=== PATIENT | male | born 1955 | race Two or more races ===

== ENCOUNTER 2016-08-20 05:55 | Emergency (ER) | payer OTHER ==
[~2016-08-20] VITALS: Ht 170.2 cm; Wt 68.0 kg
[2016-08-20] MEDS ORDERED: FAMOTIDINE/PF INJ 20 MG/2 ML VIAL IV ONE ×2 (06:30→06:33)
[2016-08-20] MEDS ORDERED: ONDANSETRON HCL/PF 4 MG/2 ML VIAL IVP ONE (06:30)
[2016-08-20] MEDS ORDERED: IV NS 0.9% 1,000 ML BAG IV ONE (06:30)
[2016-08-20] MEDS ORDERED: IV SET PRIMARY 1 EA INFUS.SET MC ONE (06:33)
[2016-08-20] MEDS ORDERED: ONDANSETRON HCL/PF 4 MG/2 ML VIAL ONE (06:33)
[2016-08-20] MEDS ORDERED: IV NS 0.9% 1,000 ML ONE (06:33)
[2016-08-20 06:53] LABS: BASOPHILS % (AUTO) 0.3 % (0.0-2.0); DIFF TOTAL % 100 %; EOSINOPHILS % (AUTO) 0.7 % (0.0-6.0); HEMATOCRIT 46 % (39-51); HEMOGLOBIN 15.1 g/dL (13.5-17.5); LYMPHOCYTES # (AUTO) 0.9 /CMM (0.8-4.8); LYMPHOCYTES % (AUTO) 17.1 % (20.0-44.0); MEAN CORPUSCULAR HEMOGLOBIN 25 PG (26.0-33.0); MEAN CORPUSCULAR HGB CONC 33 g/dl (31.0-36.0); MEAN CORPUSCULAR VOLUME 77 fL (80-96); MONOCYTES # (AUTO) 0.5 /CMM (0.1-1.30); MONOCYTES % (AUTO) 8.4 % (2.0-12.0); NEUTROPHILS % (AUTO) 73.5 % (43.0-81.0); PLATELET COUNT (AUTO) 173 /CMM (150-450); RED BLOOD CELL COUNT(AUTO) 6.06 MIL/uL (4.5-6.0); WHITE BLOOD COUNT (AUTO) 5.4 K/uL (4.3-11.0)
[2016-08-20 07:11] LABS: INR 1.05 (0.87-1.13); PROTHROMBIN TIME 11.4 SECS (9.5-12.7)
[2016-08-20 07:13] LABS: ALBUMIN 3.8 g/dL (3.4-5.0); BILIRUBIN,DIRECT 0.1 mg/dL (0.0-0.2); BILIRUBIN,TOTAL 0.5 mg/dL (0.2-1.0); CALCIUM, SERUM 8.4 mg/dL (8.5-10.1); CREATININE 0.7 mg/dL (0.6-1.3); INDIRECT BILIRUBIN 0.4 mg/dL (0.0-1.1); POTASSIUM 3.8 mmol/L (3.5-5.1); TOTAL PROTEIN, SERUM 6.9 g/dL (6.4-8.2)
[2016-08-20 07:50] VITALS: BP 140/80
== END 2016-08-20 08:20 | disposition home or self-care (01) ==
LOC: ER 05:59
DX: K29.20 Alcoholic gastritis without bleeding (principal); F10.10 Alcohol abuse, uncomplicated; F17.200 Nicotine dependence, unspecified, uncomplicated; Z87.442 Personal history of urinary calculi; Z88.6 Allergy status to analgesic agent; Z88.8 Allergy status to other drugs, medicaments and biological substances
CPT/HCPCS: 36415; 80048; 80076; 83690; 85025; 85730; 96361; 96374; 96375; 99284; A4606; G0480; J2405; J3490; J7030; Z7610

== ENCOUNTER 2017-01-19 16:35 | Emergency (ER) | payer OTHER ==
[~2017-01-19] VITALS: Ht 172.7 cm; Wt 77.1 kg
--- NOTE | 2017-01-19 17:12 | NUR ---
NAUSEA, VOMITING, AND DIARRHEA X 3 DAYS . CHEST PAIN SINCE YESTERDAY. PLACED ON MONITOR. GOWNED PT. AWAITING MD ORDER
[2017-01-19 17:45] LABS: BASOPHILS % (AUTO) 0.9 % (0.0-2.0); EOSINOPHILS # (AUTO) 0.2 /CMM (0.0-0.7); EOSINOPHILS % (AUTO) 4.5 % (0.0-6.0); HEMATOCRIT 43 % (39-51); LYMPHOCYTES # (AUTO) 1.4 /CMM (0.8-4.8); LYMPHOCYTES % (AUTO) 31.5 % (20.0-44.0); MEAN CORPUSCULAR HEMOGLOBIN 26 PG (26.0-33.0); MEAN CORPUSCULAR HGB CONC 33 g/dl (31.0-36.0); MEAN CORPUSCULAR VOLUME 79 fL (80-96); MONOCYTES # (AUTO) 0.4 /CMM (0.1-1.30); MONOCYTES % (AUTO) 9.5 % (2.0-12.0); NEUTROPHILS # (AUTO) 2.3 /CMM (1.8-8.9); NEUTROPHILS % (AUTO) 53.6 % (43.0-81.0); PLATELET COUNT (AUTO) 192 /CMM (150-450); RDW COEFFICIENT OF VARIATION 13.9 (11.5-15.0); RED BLOOD CELL COUNT(AUTO) 5.49 MIL/uL (4.5-6.0); WHITE BLOOD COUNT (AUTO) 4.3 K/uL (4.3-11.0)
[2017-01-19] MEDS ORDERED: LORAZEPAM INJ 2 MG/ML VIAL ONE (17:46)
[2017-01-19] MEDS ORDERED: IV NS 0.9% 1,000 ML ONE (17:47)
[2017-01-19] MEDS ORDERED: IV SET PRIMARY PUMP SET 1 EA INFUS.SET MC ONE ×2 (17:47→18:02)
[2017-01-19] MEDS ORDERED: ONDANSETRON HCL/PF 4 MG/2 ML VIAL ONE (17:47)
--- NOTE | 2017-01-19 17:48 | NUR ---
LAC #18 IV ACCESS. BLOOD SAMPLE COLLECTED SENT TO LAB
--- NOTE | 2017-01-19 17:50 | NUR ---
DOORPERSON AT BEDSIDE
[2017-01-19 17:56] LABS: PROTHROMBIN TIME 10.4 SECS (9.5-12.7)
[2017-01-19 17:59] LABS: CALCIUM, SERUM 8.7 mg/dL (8.5-10.1); CARBON DIOXIDE 28 mmol/L (21-32); CHLORIDE 104 mmol/L (98-107); CREATININE 0.7 mg/dL (0.6-1.3); GLUCOSE 86 mg/dL (74-106); POTASSIUM 4.4 mmol/L (3.5-5.1); SODIUM SERUM 139 mmol/L (136-145); UREA NITROGEN, BLOOD 8 mg/dL (7-18)
[2017-01-19] MEDS ORDERED: LORAZEPAM INJ 2 MG/ML VIAL IV ONE (18:00)
[2017-01-19] MEDS ORDERED: IV NS 0.9% 1,000 ML BAG IV ONE (18:00)
[2017-01-19] MEDS ORDERED: PANTOPRAZOLE 80 MG in IV NS 0.9% 500 ML IV ONE (18:00)
[2017-01-19] MEDS ORDERED: ONDANSETRON HCL/PF 4 MG/2 ML VIAL IVP ONE (18:00)
[2017-01-19 18:04] LABS: ALCOHOL, BLOOD < 3 mg/dL (0-0)
[2017-01-19 18:05] LABS: SALICYLATE 1.1 mg/dL (2.8-20.0)
[2017-01-19 18:06] LABS: ACETAMINOPHEN < 1 ug/ml (10-30); TROPONIN I < 0.017 ng/mL (0.00-0.056)
--- NOTE | 2017-01-19 19:20 | NUR ---
REPORT GIVEN TO ED FOR NIDIA
--- NOTE | 2017-01-19 19:23 | NUR ---
ASSUMED CCARE. PT AAOX4 NO ACUTE DISTRESS NOTED, RESP EVEN AND UNLABORED. PT DENIES PAIN OR DISCOMFORT AT THIS TIME. PT STATES "I FEEL MUCH BETTER NOW." ER MD HORVATH AWARE. PENDING DISPOSITION.
--- NOTE | 2017-01-19 19:29 | NUR ---
URINE SAMPLE COLLECTED SENT TO LAB
[2017-01-19 19:39] LABS: APPEARANCE,URINE Clear (CLEAR); BILIRUBIN,URINE Negative (NEGATIVE); BLOOD, URINE Negative Ery/uL (NEGATIVE); COLOR,URINE Yellow (YELLOW); KETONES,URINE Negative (NEGATIVE); LEUKOCYTE ESTERASE ,URINE Negative (NEGATIVE); NITRITE, URINE Negative (NEGATIVE); PROTEIN,URINE Negative (NEGATIVE); UGLUCOSE Negative (NEGATIVE); UROBILINOGEN,URINE 0.2 EU/dL (0.2)
--- NOTE | 2017-01-19 20:43 | NUR ---
IV removed. Catheter intact and site benign. Pressure and 4x4 applied to site. No bleeding noted.Patient discharged to home in stable condition. Written and verbal after care instructions given. Patient verbalizes understanding of instruction. ambulatory with a steady gait noted. pt aaox4 no acuite distress noted, resp even and unlabored. pt remains pain free at this time.
[2017-01-19 20:44] VITALS: BP 138/86
== END 2017-01-19 20:48 | disposition home or self-care (01) ==
LOC: ER 16:37
DX: F10.239 Alcohol dependence with withdrawal, unspecified (principal); R51 Headache; R07.89 Other chest pain; F17.200 Nicotine dependence, unspecified, uncomplicated; Z87.442 Personal history of urinary calculi; Z88.6 Allergy status to analgesic agent
CPT/HCPCS: 36415; 71010; 80048; 80305; 80329; 81001; 84484; 85025; 85730; 93005; 96361; 96365; 96366; 96375; 99285; A4606; C9113; G0480 ×2; J2060; J2405; J7030; J7040; Z7610; 81000-TC

== ENCOUNTER 2017-04-27 03:14 | Emergency (ER) | payer OTHER ==
[2017-04-27 11:38] LABS: INR 1.02 (0.87-1.13); PROTHROMBIN TIME 10.6 SECS (9.5-12.7); RED BLOOD CELL COUNT(AUTO) 5.94 MIL/uL (4.5-6.0)
[2017-04-27 11:39] LABS: BASOPHILS % (AUTO) 0.6 % (0.0-2.0); EOSINOPHILS % (AUTO) 2.2 % (0.0-6.0); HEMATOCRIT 46 % (39-51); LYMPHOCYTES % (AUTO) 29.1 % (20.0-44.0); MEAN CORPUSCULAR HEMOGLOBIN 25 PG (26.0-33.0); MEAN CORPUSCULAR HGB CONC 33 g/dl (31.0-36.0); MEAN CORPUSCULAR VOLUME 77 fL (80-96); MONOCYTES % (AUTO) 11.4 % (2.0-12.0); NEUTROPHILS % (AUTO) 56.7 % (43.0-81.0); PLATELET COUNT (AUTO) 185 /CMM (150-450); RDW COEFFICIENT OF VARIATION 14.7 (11.5-15.0)
[2017-04-27 17:30] LABS: CALCIUM, SERUM 8.5 mg/dL (8.5-10.1); CREATININE 0.7 mg/dL (0.6-1.3); POTASSIUM 3.9 mmol/L (3.5-5.1)
[2017-04-27 17:36] LABS: ALBUMIN 3.9 g/dL (3.4-5.0); BILIRUBIN,TOTAL 0.5 mg/dL (0.2-1.0)
== END 2017-04-27 09:29 | disposition home or self-care (01) ==
LOC: ER 03:14
DX: K29.20 Alcoholic gastritis without bleeding (principal); F10.10 Alcohol abuse, uncomplicated
CPT/HCPCS: 36415; 80053-TC; 83690-TC; 85025-TC; 85730-TC

== ENCOUNTER 2017-05-11 11:57 | Emergency (ER) | payer OTHER ==
[~2017-05-11] VITALS: Ht 170.2 cm; Wt 74.8 kg
--- NOTE | 2017-05-11 12:00 | NUR ---
SELF PRESENTS TO ED: WITH PALPITATIONS S/P DRINKING 3 CUPS OF COFFEE THIS AM. NOTED ANXIOUS. MD AT FOR EVAL. IV ACCESS STARTED. VSS. SAFETY AND COMFORT MEASURES PROVIDED. WILL MONITOR.
[2017-05-11] MEDS ORDERED: ONDANSETRON HCL/PF 4 MG/2 ML VIAL ONE (12:22)
[2017-05-11 12:28] LABS: BASOPHILS % (AUTO) 0.6 % (0.0-2.0); EOSINOPHILS % (AUTO) 0.4 % (0.0-6.0); HEMATOCRIT 44 % (39-51); HEMOGLOBIN 14.6 g/dL (13.5-17.5); LYMPHOCYTES # (AUTO) 1.1 /CMM (0.8-4.8); LYMPHOCYTES % (AUTO) 20.5 % (20.0-44.0); MEAN CORPUSCULAR HEMOGLOBIN 26 PG (26.0-33.0); MEAN CORPUSCULAR HGB CONC 33 g/dl (31.0-36.0); MEAN CORPUSCULAR VOLUME 77 fL (80-96); MONOCYTES # (AUTO) 0.3 /CMM (0.1-1.30); MONOCYTES % (AUTO) 5.5 % (2.0-12.0); NEUTROPHILS # (AUTO) 3.8 /CMM (1.8-8.9); PLATELET COUNT (AUTO) 169 /CMM (150-450); RDW COEFFICIENT OF VARIATION 13.3 (11.5-15.0); WHITE BLOOD COUNT (AUTO) 5.2 K/uL (4.3-11.0)
[2017-05-11] MEDS ORDERED: ONDANSETRON 4 MG TAB.RAPDIS SL ONE (12:30)
[2017-05-11] MEDS ORDERED: HYDROCODONE/APAP 5/325MG 1 EACH TABLET PO ONE (12:30)
[2017-05-11] MEDS ORDERED: IV NS 0.9% 1,000 ML BAG IV ONE (12:30)
[2017-05-11 12:37] LABS: CALCIUM, SERUM 8.9 mg/dL (8.5-10.1); CARBON DIOXIDE 27 mmol/L (21-32); CHLORIDE 103 mmol/L (98-107); CREATININE 0.9 mg/dL (0.6-1.3); GLUCOSE 97 mg/dL (74-106); POTASSIUM 3.7 mmol/L (3.5-5.1); SODIUM SERUM 139 mmol/L (136-145); UREA NITROGEN, BLOOD 13 mg/dL (7-18)
[2017-05-11 12:43] LABS: ALANINE AMINOTRANSFERASE 53 U/L (12-78); ALBUMIN 4.3 g/dL (3.4-5.0); ALKALINE PHOSPHATASE 74 U/L (46-116); ASPARTATE AMINOTRANSFERASE 32 U/L (15-37); BILIRUBIN,DIRECT 0.1 mg/dL (0.0-0.2); BILIRUBIN,TOTAL 0.4 mg/dL (0.2-1.0); TOTAL PROTEIN, SERUM 7.4 g/dL (6.4-8.2)
[2017-05-11 12:45] LABS: TROPONIN I < 0.017 ng/mL (0.00-0.056)
--- NOTE | 2017-05-11 13:40 | NUR ---
IV removed. Catheter intact and site benign. Pressure and 4x4 applied to site. No bleeding noted.
--- NOTE | 2017-05-11 13:59 | NUR ---
Patient discharged to home in stable condition. Written and verbal after care instructions given. Patient verbalizes understanding of instruction.
[2017-05-11 14:04] VITALS: BP 129/71
== END 2017-05-11 14:05 | disposition home or self-care (01) ==
LOC: ER 11:58
DX: R00.2 Palpitations (principal); F10.10 Alcohol abuse, uncomplicated; F17.200 Nicotine dependence, unspecified, uncomplicated; Z87.442 Personal history of urinary calculi; Z88.6 Allergy status to analgesic agent
CPT/HCPCS: 36415; 71010; 80048; 80076; 84484; 85025; 93005; 96360; 99285; A4606; J2405; J7030; Z7610

== ENCOUNTER 2017-06-26 17:25 | Emergency (ER) | payer OTHER ==
[~2017-06-26] VITALS: Ht 167.6 cm; Wt 77.1 kg
--- NOTE | 2017-06-26 17:40 | NUR ---
AAOX3, C/O ABDOMINAL PAIN RADIATING TO BACK X TODAY, N/V, DIARRHEA THIS AM HAD VODKA THIS AM. RR IS EVEN AND UNLABORED WITH NAD NOTED. SKIN IS WARM AND DRY. AWAITING MD FOR EVAL.
[2017-06-26 18:00] LABS: EOSINOPHILS % (AUTO) 0.5 % (0.0-6.0); HEMATOCRIT 46 % (39-51); HEMOGLOBIN 15.2 g/dL (13.5-17.5); LYMPHOCYTES # (AUTO) 0.9 /CMM (0.8-4.8); LYMPHOCYTES % (AUTO) 20.1 % (20.0-44.0); MEAN CORPUSCULAR HEMOGLOBIN 26 PG (26.0-33.0); MEAN CORPUSCULAR HGB CONC 34 g/dl (31.0-36.0); MEAN CORPUSCULAR VOLUME 77 fL (80-96); MONOCYTES # (AUTO) 0.5 /CMM (0.1-1.30); MONOCYTES % (AUTO) 12.2 % (2.0-12.0); NEUTROPHILS # (AUTO) 2.9 /CMM (1.8-8.9); NEUTROPHILS % (AUTO) 66.2 % (43.0-81.0); PLATELET COUNT (AUTO) 175 /CMM (150-450); RDW COEFFICIENT OF VARIATION 13.9 (11.5-15.0); RED BLOOD CELL COUNT(AUTO) 5.93 MIL/uL (4.5-6.0); WHITE BLOOD COUNT (AUTO) 4.3 K/uL (4.3-11.0)
[2017-06-26] MEDS: IV NS 0.9% 1,000 ML BAG IV ONE (18:10)
[2017-06-26 18:12] LABS: CALCIUM, SERUM 8.7 mg/dL (8.5-10.1); CREATININE 0.6 mg/dL (0.6-1.3); POTASSIUM 3.5 mmol/L (3.5-5.1)
[2017-06-26] MEDS ORDERED: ONDANSETRON HCL/PF 4 MG/2 ML VIAL ONE (18:12)
[2017-06-26] MEDS: ONDANSETRON HCL/PF 4 MG/2 ML VIAL IVP ONE (18:12)
[2017-06-26] MEDS ORDERED: MORPHINE SULFATE INJ 4 MG/ML DISP.SYRIN ONE (18:13)
[2017-06-26] MEDS: MORPHINE SULFATE INJ 2 MG/ML DISP.SYRIN IV ONE (18:14)
[2017-06-26 18:15] LABS: INR 0.97 (0.87-1.13); PROTHROMBIN TIME 10.1 SECS (9.5-12.7)
[2017-06-26 18:18] LABS: ALBUMIN 3.9 g/dL (3.4-5.0); BILIRUBIN,DIRECT 0.1 mg/dL (0.0-0.2); BILIRUBIN,TOTAL 0.4 mg/dL (0.2-1.0); TOTAL PROTEIN, SERUM 6.9 g/dL (6.4-8.2)
--- NOTE | 2017-06-26 18:49 | NUR ---
REPORT GIVEN TO MARK OVALLE FOR NIDIA.
--- NOTE | 2017-06-26 19:18 | NUR ---
IV removed. Catheter intact and site benign. Pressure and 4x4 applied to site. No bleeding noted.Patient discharged to home in stable condition. Written and verbal after care instructions given. Patient verbalizes understanding of instruction and Rx. Pt ambulated to the bathroom with a steady gait. Then pt ambulated out to the lobby to wait for a taxi. VSS.
[2017-06-26 19:23] VITALS: BP 125/73
== END 2017-06-26 19:23 | disposition home or self-care (01) ==
LOC: ER 17:27
DX: K29.20 Alcoholic gastritis without bleeding (principal); F10.10 Alcohol abuse, uncomplicated; F17.200 Nicotine dependence, unspecified, uncomplicated; Z87.442 Personal history of urinary calculi; Z88.6 Allergy status to analgesic agent; Z88.8 Allergy status to other drugs, medicaments and biological substances
CPT/HCPCS: 36415; 80048; 80076; 83690; 85025; 85730; 96361; 96374; 96375; 99284; A4606; G0480; J2270; J2405; J7030; Z7610

== ENCOUNTER 2017-08-25 08:02 | Emergency (ER) | payer OTHER ==
[~2017-08-25] VITALS: Ht 165.1 cm; Wt 74.8 kg
--- NOTE | 2017-08-25 08:31 | NUR ---
PT C/O HEADACHE AND RUQ ABD PAIN X 2 DAYS ASSOCIATED WITH DRINKING ALCOHOL. DENIES NAUSEA VOMITING OR DIARRHEA. PT IS WARM TO TOUCH, NON DIAPHORETIC, NON TACHYCARDIC, BREATHING EQUAL AND UNLABORED. ABD IS SOFT, NON DISTENDED, AND NON TENDER TO PALPATION. LINE STARTED ON L AC G 20, BLOOD DRAWN FROM LINE AND SENT TO LAB
[2017-08-25] MEDS ORDERED: THIAMINE HCL 100 MG TABLET ONE (08:42)
[2017-08-25] MEDS ORDERED: FOLIC ACID 1 MG TABLET ONE (08:42)
[2017-08-25] MEDS ORDERED: ONDANSETRON HCL/PF 4 MG/2 ML VIAL ONE (08:42)
--- NOTE | 2017-08-25 08:44 | NUR ---
PT RESTING IN BED. NAD. WILL CONTINUE TO MONITOR.
[2017-08-25 08:50] LABS: BASOPHILS % (AUTO) 0.5 % (0.0-2.0); EOSINOPHILS % (AUTO) 0.7 % (0.0-6.0); HEMATOCRIT 45 % (39-51); LYMPHOCYTES # (AUTO) 1.1 /CMM (0.8-4.8); LYMPHOCYTES % (AUTO) 16.9 % (20.0-44.0); MEAN CORPUSCULAR HEMOGLOBIN 26 PG (26.0-33.0); MEAN CORPUSCULAR HGB CONC 33 g/dl (31.0-36.0); MEAN CORPUSCULAR VOLUME 77 fL (80-96); MONOCYTES # (AUTO) 0.3 /CMM (0.1-1.30); MONOCYTES % (AUTO) 5.2 % (2.0-12.0); NEUTROPHILS % (AUTO) 76.7 % (43.0-81.0); PLATELET COUNT (AUTO) 200 /CMM (150-450); RDW COEFFICIENT OF VARIATION 14.8 (11.5-15.0); RED BLOOD CELL COUNT(AUTO) 5.87 MIL/uL (4.5-6.0); WHITE BLOOD COUNT (AUTO) 6.5 K/uL (4.3-11.0)
[2017-08-25] MEDS ORDERED: FOLIC ACID 1 MG TABLET PO ONE (09:00)
[2017-08-25] MEDS ORDERED: IV NS 0.9% 1,000 ML BAG IV ONE (09:00)
[2017-08-25] MEDS ORDERED: THIAMINE HCL 100 MG TABLET PO ONE (09:00)
[2017-08-25] MEDS ORDERED: ONDANSETRON HCL/PF 4 MG/2 ML VIAL IVP ONE (09:00)
[2017-08-25 09:01] LABS: CALCIUM, SERUM 8.7 mg/dL (8.5-10.1); CREATININE 0.7 mg/dL (0.6-1.3); POTASSIUM 3.8 mmol/L (3.5-5.1)
[2017-08-25 09:09] LABS: ALBUMIN 3.9 g/dL (3.4-5.0); BILIRUBIN,DIRECT 0.1 mg/dL (0.0-0.2); BILIRUBIN,TOTAL 0.4 mg/dL (0.2-1.0); TOTAL PROTEIN, SERUM 7.3 g/dL (6.4-8.2)
--- NOTE | 2017-08-25 10:27 | NUR ---
IV removed. Catheter intact and site benign. Pressure and 4x4 applied to site. No bleeding noted.
--- NOTE | 2017-08-25 10:28 | NUR ---
PT. VERBALIZED UNDERSTANDING OF AFTERCARE INSTRUCTIONS.Patient discharged to home in stable condition. Written and verbal after care instructions given. Patient verbalizes understanding of instruction.
[2017-08-25 10:30] VITALS: BP 124/76
[2017-08-25] MEDS ORDERED: MAG HYDROX/AL HYDROX/SIMETH 30 ML UDC PO ONE (10:30)
[2017-08-25] MEDS ORDERED: LIDOCAINE VISCOUS 2% UD 15 ML UDC MM ONE (10:30)
== END 2017-08-25 10:30 | disposition home or self-care (01) ==
LOC: ER 08:03
DX: K29.20 Alcoholic gastritis without bleeding (principal); F17.200 Nicotine dependence, unspecified, uncomplicated; Z87.442 Personal history of urinary calculi; Z88.6 Allergy status to analgesic agent
CPT/HCPCS: 36415; 80048; 80076; 83690; 85025; 96374; 99284; A4606; J2405; J7030; Z7610

== ENCOUNTER 2017-10-18 22:18 | Emergency (ER) | payer OTHER ==
[~2017-10-18] VITALS: Ht 170.2 cm; Wt 72.6 kg
--- NOTE | 2017-10-18 22:45 | NUR ---
BIBSELF C/O RUQ ABD PAIN AND LEFT SIDED CHEST PAIN SINCE 9AM, WORSE NOW S/P DRINKING "20 GLASSES OF ALCOHOL/BOCA". +N, -V/D. PT IS AAOX4. RESP EVEN AND UNLABORED. SKIN WNL. NO S/S OF ACUTE DISTRESS NOTED. VSS. PT PLACED IN GOWN AND ON MONITOR AND POX. PT SAFETY AND COMFORT MEASURES IN PLACE. AWAITING MD FOR EVAL.
[2017-10-18] MEDS ORDERED: MAG HYDROX/AL HYDROX/SIMETH 30 ML UDC PO ONE (23:00)
[2017-10-18] MEDS ORDERED: LIDOCAINE VISCOUS 2% UD 15 ML UDC MM ONE (23:00)
[2017-10-18] MEDS ORDERED: BELLADONNA /PHENOBARB 5 ML UDC 5 ML UDC PO ONE (23:00)
[2017-10-18] MEDS ORDERED: LIDOCAINE VISCOUS 2% UD 15 ML UDC ONE (23:05)
[2017-10-18] MEDS ORDERED: MAG HYDROX/AL HYDROX/SIMETH 30 ML UDC ONE (23:05)
[2017-10-18] MEDS ORDERED: BELLADONNA ALK/PHENOBARB TAB 16.2 MG TABLET ONE (23:10)
--- NOTE | 2017-10-18 23:14 | NUR ---
PT MEDICATED PER HESTER ORDERS. MADE AWARE THAT THERE IS NO BELLADONNA ELIXIR. PER MD, VERBAL ORDER GIVEN TO GIVE BELLADONNA 16.2MG PO PILL.
[2017-10-18 23:29] LABS: BASOPHILS % (AUTO) 0.9 % (0.0-2.0); EOSINOPHILS % (AUTO) 1.6 % (0.0-6.0); HEMATOCRIT 46 % (39-51); HEMOGLOBIN 15.2 g/dL (13.5-17.5); LYMPHOCYTES # (AUTO) 0.9 /CMM (0.8-4.8); LYMPHOCYTES % (AUTO) 19.4 % (20.0-44.0); MEAN CORPUSCULAR HGB CONC 33 g/dl (31.0-36.0); MEAN CORPUSCULAR VOLUME 77 fL (80-96); MONOCYTES # (AUTO) 0.4 /CMM (0.1-1.30); MONOCYTES % (AUTO) 9.3 % (2.0-12.0); NEUTROPHILS # (AUTO) 3.4 /CMM (1.8-8.9); NEUTROPHILS % (AUTO) 68.8 % (43.0-81.0); PLATELET COUNT (AUTO) 210 /CMM (150-450); RDW COEFFICIENT OF VARIATION 14.1 (11.5-15.0); RED BLOOD CELL COUNT(AUTO) 5.92 MIL/uL (4.5-6.0); WHITE BLOOD COUNT (AUTO) 4.8 K/uL (4.3-11.0)
[2017-10-18] MEDS ORDERED: BELLADONNA ALK/PHENOBARB TAB 16.2 MG TABLET PO ONE (23:30)
[2017-10-18 23:46] LABS: CALCIUM, SERUM 8.3 mg/dL (8.5-10.1); CREATININE 0.6 mg/dL (0.6-1.3); POTASSIUM 3.8 mmol/L (3.5-5.1)
[2017-10-18 23:52] LABS: ALBUMIN 3.5 g/dL (3.4-5.0); BILIRUBIN,DIRECT 0.1 mg/dL (0.0-0.2); BILIRUBIN,TOTAL 0.3 mg/dL (0.2-1.0); TOTAL PROTEIN, SERUM 6.7 g/dL (6.4-8.2)
--- NOTE | 2017-10-19 02:23 | NUR ---
CALLED LAB FOR SECOND TROPONINE DRAW.
--- NOTE | 2017-10-19 02:38 | NUR ---
CALLED LAB REQUESTING INFORMATION ON WHETER TROPONINE HAS BEEN DRAWN ON PT OR NOT. WAS TOLD BY ABEL THAT HE WOULD LOOK INTO IT.
--- NOTE | 2017-10-19 02:40 | NUR ---
PT NOTED TO BE ANXIOUS. PT WALKING AROUND IN ROOM STATING "I DONT FEEL GOOD, I FEEL SHAKY AND ANXIOUS". MADE AWARE.
[2017-10-19] MEDS ORDERED: LORAZEPAM 1 MG TABLET ONE (02:42)
--- NOTE | 2017-10-19 02:45 | NUR ---
LAB BEDSIDE FOR BLOOD DRAW
[2017-10-19] MEDS ORDERED: LORAZEPAM 1 MG TABLET PO ONE (03:00)
[2017-10-19 04:01] VITALS: BP 129/81
--- NOTE | 2017-10-19 04:07 | NUR ---
IV removed. Catheter intact and site benign. Pressure and 4x4 applied to site. No bleeding noted.Patient discharged to home in stable condition. Written and verbal after care instructions along with RX given. Patient verbalizes understanding of instruction. VSS UPON DISCHARGE. PT AMBULATED WITH STEADY GAIT OUT OF ER.
== END 2017-10-19 04:03 | disposition home or self-care (01) ==
LOC: ER 22:22
DX: K29.20 Alcoholic gastritis without bleeding (principal); F41.9 Anxiety disorder, unspecified; F10.10 Alcohol abuse, uncomplicated; F17.200 Nicotine dependence, unspecified, uncomplicated; Z87.442 Personal history of urinary calculi; Z88.6 Allergy status to analgesic agent; Z88.8 Allergy status to other drugs, medicaments and biological substances
CPT/HCPCS: 36415; 80048-TC; 80076-TC; 83690-TC; 84484-TC; 85025-TC; A4606; Z7610

== ENCOUNTER 2021-12-12 21:58 | Emergency (ER) | payer OTHER ==
[~2021-12-12] VITALS: Ht 167.6 cm; Wt 63.5 kg
[2021-12-12] MEDS ORDERED: ONDANSETRON HCL/PF 4 MG/2 ML VIAL IVP ONE (22:30)
[2021-12-12] MEDS ORDERED: IV NS 0.9% 1,000 ML BAG IV ONE (22:30)
[2021-12-12] MEDS ORDERED: MORPHINE SULFATE INJ 2 MG/ML DISP.SYRIN IV ONE (22:30)
--- NOTE | 2021-12-12 22:30 | NUR ---
[id number] FORM HOME C/O N/V/D X8 HOURS WITH MID EPIGASTRIC PAIN. HX OF ALCOHOL ABUSE. PATIENT ALERT AND ORIENTED X3. AMBULATORY WITH NON LABORED BREATHING IN BED 19 SEEN BY MD AT TRIAGE.
[2021-12-12] MEDS ORDERED: ONDANSETRON HCL/PF 4 MG/2 ML VIAL ONE (22:31)
[2021-12-12] MEDS ORDERED: MORPHINE SULFATE INJ 4 MG/ML DISP.SYRIN ONE (22:32)
--- NOTE | 2021-12-12 22:38 | NUR ---
IV LINE ESTABLISHED, LAC 18G. BLOOD COLLECTED AND SENT TO LAB
[2021-12-12 23:02] LABS: EOSINOPHILS % (AUTO) 1.7 % (0.0-6.0); HEMATOCRIT 45 % (39-51); HEMOGLOBIN 14.7 g/dL (13.5-17.5); LYMPHOCYTES # (AUTO) 1.3 K/uL (0.8-4.8); LYMPHOCYTES % (AUTO) 33.4 % (20.0-44.0); MEAN CORPUSCULAR HGB CONC 32 g/dl (31.0-36.0); MEAN CORPUSCULAR VOLUME 77 fL (80-96); MONOCYTES # (AUTO) 0.4 K/uL (0.1-1.30); MONOCYTES % (AUTO) 10.2 % (2.0-12.0); NEUTROPHILS # (AUTO) 2.1 K/uL (1.8-8.9); NEUTROPHILS % (AUTO) 53.7 % (43.0-81.0); PLATELET COUNT (AUTO) 190 K/uL (150-450); RED BLOOD CELL COUNT(AUTO) 5.89 MIL/uL (4.5-6.0); WHITE BLOOD COUNT (AUTO) 3.9 K/uL (4.3-11.0)
[2021-12-12 23:25] LABS: ALBUMIN 3.9 g/dL (3.4-5.0); BILIRUBIN,DIRECT 0.1 mg/dL (0.0-0.2); BILIRUBIN,TOTAL 0.5 mg/dL (0.2-1.0); CALCIUM, SERUM 8.6 mg/dL (8.5-10.1); CREATININE 0.8 mg/dL (0.6-1.3); POTASSIUM 3.8 mmol/L (3.5-5.1); TOTAL PROTEIN, SERUM 7.3 g/dL (6.4-8.2)
[2021-12-13] MEDS ORDERED: ONDA4TAB11 PO (00:55)
[2021-12-13] MEDS ORDERED: OMEP40CA21 PO (00:55)
[2021-12-13 01:15] VITALS: BP 145/90
--- NOTE | 2021-12-13 01:15 | NUR ---
Patient discharged to home in stable condition. Written and verbal after care instructions given. Patient verbalizes understanding of instruction.
== END 2021-12-13 01:19 | disposition home or self-care (01) ==
LOC: ER 22:00
DX: K29.20 Alcoholic gastritis without bleeding (principal); F10.10 Alcohol abuse, uncomplicated; R10.13 Epigastric pain; R10.11 Right upper quadrant pain; F17.200 Nicotine dependence, unspecified, uncomplicated; Z87.442 Personal history of urinary calculi; Z88.8 Allergy status to other drugs, medicaments and biological substances; Y90.9 Presence of alcohol in blood, level not specified
CPT/HCPCS: 36415; 74176; 76705; 80048; 80076; 83690; 85025; 96361; 96374; 96375; 99284; 99406; J2270; J2405; J7030

== ENCOUNTER 2023-08-20 10:49 | Inpatient (IN) | payer OTHER ==
[~2023-08-20] VITALS: Ht 170.2 cm; Wt 72.6 kg
[~2023-08-20 10:49] MED LIST: OMEP40CA21 PO; ONDA4TAB11 PO
[2023-08-20] MEDS ORDERED: ONDANSETRON HCL/PF 4 MG/2 ML VIAL ONE (11:14)
[2023-08-20] MEDS ORDERED: LORAZEPAM 1 MG TABLET ONE (11:14)
[2023-08-20] MEDS: ONDANSETRON HCL/PF 4 MG/2 ML VIAL IVP ONE (11:21)
[2023-08-20] MEDS: IV NS 0.9% 1,000 ML BAG IV ONE (11:21)
[2023-08-20] MEDS: LORAZEPAM 1 MG TABLET PO ONE (11:22)
[2023-08-20 11:56] LABS: CALCIUM, SERUM 8.4 mg/dL (8.5-10.1); CARBON DIOXIDE 24 mmol/L (21-32); CHLORIDE 95 mmol/L (98-107); CREATININE 0.6 mg/dL (0.6-1.3); GLUCOSE 141 mg/dL (74-106); POTASSIUM 3.5 mmol/L (3.5-5.1); SODIUM SERUM 132 mmol/L (136-145); UREA NITROGEN, BLOOD 9 mg/dL (7-18)
[2023-08-20 12:02] LABS: ACETAMINOPHEN < 10 ug/ml (10-30); ALANINE AMINOTRANSFERASE 87 U/L (12-78); ALBUMIN 3.6 g/dL (3.4-5.0); ALCOHOL, BLOOD 24 mg/dL (0-10); ALKALINE PHOSPHATASE 85 U/L (46-116); ASPARTATE AMINOTRANSFERASE 59 U/L (15-37); BILIRUBIN,DIRECT 0.2 mg/dL (0.0-0.2); BILIRUBIN,TOTAL 0.8 mg/dL (0.2-1.0); SALICYLATE < 0.2 mg/dL (2.8-20.0); TOTAL PROTEIN, SERUM 6.6 g/dL (6.4-8.2)
[2023-08-20 12:09] LABS: BASOPHILS % (AUTO) 0.8 % (0.0-2.0); EOSINOPHILS % (AUTO) 0.4 % (0.0-6.0); HEMATOCRIT 41 % (39-51); HEMOGLOBIN 13.7 g/dL (13.5-17.5); LYMPHOCYTES # (AUTO) 0.8 K/uL (0.8-4.8); MEAN CORPUSCULAR HEMOGLOBIN 26 PG (26.0-33.0); MEAN CORPUSCULAR HGB CONC 33 g/dl (31.0-36.0); MEAN CORPUSCULAR VOLUME 77 fL (80-96); MONOCYTES # (AUTO) 0.4 K/uL (0.1-1.30); MONOCYTES % (AUTO) 10.9 % (2.0-12.0); NEUTROPHILS # (AUTO) 2.4 K/uL (1.8-8.9); NEUTROPHILS % (AUTO) 65.9 % (43.0-81.0); PLATELET COUNT (AUTO) 148 K/uL (150-450); RED BLOOD CELL COUNT(AUTO) 5.37 MIL/uL (4.5-6.0); RED CELL DISTRIBUTION WIDTH 14.9 % (11.5-15.0); WHITE BLOOD COUNT (AUTO) 3.7 K/uL (4.3-11.0)
[2023-08-20] MEDS ORDERED: LORAZEPAM INJ 2 MG/ML VIAL ONE (12:28)
[2023-08-20] MEDS: LORAZEPAM INJ 2 MG/ML VIAL IV ONE (12:29)
[2023-08-20 13:15] LABS: APPEARANCE,URINE CLEAR (CLEAR); BILIRUBIN,URINE NEGATIVE (NEGATIVE); BLOOD, URINE NEGATIVE Ery/uL (NEGATIVE); COLOR,URINE YELLOW (YELLOW); KETONES,URINE NEGATIVE (NEGATIVE); LEUKOCYTE ESTERASE ,URINE NEGATIVE (NEGATIVE); NITRITE, URINE NEGATIVE (NEGATIVE); PROTEIN,URINE NEGATIVE (NEGATIVE); UGLUCOSE NEGATIVE (NEGATIVE); UROBILINOGEN,URINE 0.2 EU/dL (0.2)
[2023-08-20] MEDS ORDERED: ACET-2605 PO (13:19)
[2023-08-20] MEDS ORDERED: MAG HYDROX/AL HYDROX/SIMETH 30 ML UDC PO PRN (15:30)
[2023-08-20] MEDS ORDERED: ONDANSETRON HCL/PF 4 MG/2 ML VIAL IVP PRN (15:30)
[2023-08-20] MEDS ORDERED: MAGNESIUM HYDROXIDE 30 ML UDC PO PRN (15:30)
[2023-08-20 15:55] LABS: BARBITURATE, URINE NEGATIVE (NEGATIVE); BENZODIAZEPINE, URINE NEGATIVE (NEGATIVE); CANNABINOID, URINE NEGATIVE (NEGATIVE); COCCAINE, URINE NEGATIVE (NEGATIVE); OPIATE, URINE NEGATIVE (NEGATIVE); PHENCYCLIDINE SCREEN,URINE NEGATIVE (NEGATIVE)
[2023-08-20 16:08] LABS: AMPHETAMINE, URINE NEGATIVE (NEGATIVE)
[2023-08-20] MEDS: IV NS 0.9% 1,000 ML IV PRN (16:58)
[2023-08-20 17:00] VITALS: BP 151/95; TEMP 97.1; O2SAT 98
[2023-08-20] MEDS: ENOXAPARIN SODIUM 40 MG/0.4 ML DISP.SYRIN SQ SCH (17:30)
[2023-08-20 20:00] VITALS: BP 161/92; TEMP 98.6; O2SAT 99
[2023-08-20 20:30] VITALS: BP 155/90; O2SAT 98
[2023-08-20] MEDS: CHLORDIAZEPOXIDE HCL 25 MG CAPSULE PO PRN (21:16)
[2023-08-20 21:45] VITALS: BP 143/83; O2SAT 99
[2023-08-21 04:00] VITALS: BP 160/93; TEMP 98.4; O2SAT 98
[2023-08-21 08:19] LABS: BASOPHILS % (AUTO) 0.4 % (0.0-2.0); EOSINOPHILS # (AUTO) 0.1 K/uL (0.0-0.7); EOSINOPHILS % (AUTO) 1.5 % (0.0-6.0); HEMATOCRIT 43 % (39-51); HEMOGLOBIN 14.1 g/dL (13.5-17.5); LYMPHOCYTES # (AUTO) 0.9 K/uL (0.8-4.8); MEAN CORPUSCULAR HEMOGLOBIN 26 PG (26.0-33.0); MEAN CORPUSCULAR HGB CONC 33 g/dl (31.0-36.0); MEAN CORPUSCULAR VOLUME 78 fL (80-96); MONOCYTES # (AUTO) 0.3 K/uL (0.1-1.30); MONOCYTES % (AUTO) 9.4 % (2.0-12.0); NEUTROPHILS # (AUTO) 2.2 K/uL (1.8-8.9); NEUTROPHILS % (AUTO) 62.7 % (43.0-81.0); PLATELET COUNT (AUTO) 138 K/uL (150-450); RED BLOOD CELL COUNT(AUTO) 5.52 MIL/uL (4.5-6.0); WHITE BLOOD COUNT (AUTO) 3.5 K/uL (4.3-11.0)
[2023-08-21 08:32] LABS: CALCIUM, SERUM 8.6 mg/dL (8.5-10.1); CREATININE 0.7 mg/dL (0.6-1.3); MAGNESIUM 2.1 mg/dL (1.8-2.4); PHOSPHORUS 2.8 mg/dL (2.5-4.9); POTASSIUM 3.7 mmol/L (3.5-5.1)
[2023-08-21 08:41] LABS: THYROID STIMULATING HORMONE 4.736 uIU/mL (0.358-3.74)
[2023-08-21] MEDS: THIAMINE HCL 100 MG TABLET PO SCH (09:01)
[2023-08-21] MEDS: FOLIC ACID 1 MG TABLET PO SCH (09:02)
[2023-08-21] MEDS: PANTOPRAZOLE 40 MG VIAL IV SCH (09:10)
[2023-08-21] MEDS ORDERED: PROP10TA10 PO (13:58)
== END 2023-08-21 15:44 | disposition home or self-care (01) | DRG 641 ==
LOC: ER 12:24 → MEDSG1 16:01
PROVIDERS: ADMIT Nurse Practitioner Acute Care; ATTEND Nurse Practitioner Acute Care
DX: E86.1 Hypovolemia (principal); F10.239 Alcohol dependence with withdrawal, unspecified; E87.1 Hypo-osmolality and hyponatremia; E87.20 Acidosis, unspecified; Y90.1 Blood alcohol level of 20-39 mg/100 ml; Z87.442 Personal history of urinary calculi; Z88.6 Allergy status to analgesic agent; D72.819 Decreased white blood cell count, unspecified; K76.9 Liver disease, unspecified; F17.200 Nicotine dependence, unspecified, uncomplicated; D69.6 Thrombocytopenia, unspecified; I10 Essential (primary) hypertension; R74.01 Elevation of levels of liver transaminase levels
CPT/HCPCS: 36415; 80048-TC; 80061-TC; 80076-TC; 83690-TC; 83735-TC; 84100-TC; 84443-TC; 85025-TC; 97112-TC; 97116-TC; A4223; C9113; G0378; G0480; J1650; J2060; J2405; J7030

== ENCOUNTER 2025-06-30 06:47 | Emergency (ER) | payer OTHER ==
[~2025-06-30] VITALS: Ht 170.2 cm; Wt 74.8 kg
[~2025-06-30 06:47] MED LIST changes: +ACET-2605 PO; -OMEP40CA21 PO; -ONDA4TAB11 PO; +PROP10TA10 PO
[2025-06-30 07:18] LABS: PLATELET COUNT (AUTO) 163 K/uL (150-450); RED BLOOD CELL COUNT(AUTO) 5.95 MIL/uL (4.5-6.0); RED CELL DISTRIBUTION WIDTH 14.9 % (11.5-15.0); WHITE BLOOD COUNT (AUTO) 4.0 K/uL (4.3-11.0)
[2025-06-30 07:24] LABS: APPEARANCE,URINE CLEAR (CLEAR); BLOOD, URINE NEGATIVE Ery/uL (NEGATIVE); LEUKOCYTE ESTERASE ,URINE NEGATIVE (NEGATIVE); NITRITE, URINE NEGATIVE (NEGATIVE); UGLUCOSE NEGATIVE (NEGATIVE)
[2025-06-30 07:26] LABS: CALCIUM, SERUM 8.5 mg/dL (8.5-10.1); CREATININE 0.7 mg/dL (0.6-1.3); SODIUM SERUM 137 mmol/L (136-145); UREA NITROGEN, BLOOD 14 mg/dL (7-18)
[2025-06-30 07:33] LABS: ASPARTATE AMINOTRANSFERASE 61 U/L (15-37); TOTAL PROTEIN, SERUM 7.2 g/dL (6.4-8.2)
[2025-06-30] MEDS ORDERED: ONDANSETRON HCL/PF 4 MG/2 ML VIAL ONE (07:33)
[2025-06-30] MEDS ORDERED: PANTOPRAZOLE 40 MG VIAL ONE (07:33)
[2025-06-30 07:36] LABS: LACTIC ACID 2.8 mmol/L (0.4-2.0)
[2025-06-30] MEDS: ONDANSETRON HCL/PF 4 MG/2 ML VIAL IVP ONE (07:39)
[2025-06-30] MEDS: IV NS 0.9% 1,000 ML BAG IV ONE (07:39)
[2025-06-30] MEDS: PANTOPRAZOLE 40 MG VIAL IV ONE (07:39)
[2025-06-30] MEDS ORDERED: CT SWABBABLE VALVE TRANS SET 1 EA INFUS.SET MC ONE (08:12)
[2025-06-30] MEDS ORDERED: IV NS 0.9% 250 ML IV ONE (08:12)
[2025-06-30] MEDS ORDERED: IOHEXOL-300 100 ML VIAL IV ONE (08:12)
[2025-06-30] MEDS ORDERED: LORAZEPAM INJ 2 MG/ML VIAL ONE (09:28)
[2025-06-30] MEDS: LORAZEPAM 4 MG/ML VIAL IV ONE (09:30)
[2025-06-30] MEDS ORDERED: ONDA4TAB11 PO (11:06)
[2025-06-30] MEDS ORDERED: OMEP20TA5 PO (11:06)
[2025-06-30] MEDS ORDERED: CHLO25CA22 PO (11:06)
[2025-06-30 11:29] VITALS: BP 150/88; TEMP 98.6; O2SAT 98
== END 2025-06-30 11:30 | disposition home or self-care (01) ==
LOC: ER 06:52
DX: F10.10 Alcohol abuse, uncomplicated (principal); R10.9 Unspecified abdominal pain; F17.200 Nicotine dependence, unspecified, uncomplicated
CPT/HCPCS: 99285; 74177; 96374; 76705; 96375; 96361; 85025; 80048; 83605 ×2; 83690; 80076; 81003; 36415; J2060 ×2; J2405; J7030; J7050; J2470; Q9967